=== PATIENT | female | born 1965 | race Caucasian/White ===

== ENCOUNTER 2017-11-24 20:02 | Emergency (ER) | payer BC ==
[~2017-11-24] VITALS: Ht 147.3 cm; Wt 58.1 kg
[2017-11-24 20:34] LABS: CLARITY/URINE CLEAR (CLEAR); COLOR,URINE YELLOW (YELLOW); PROTEIN URINE NEGATIVE (NEGATIVE)
[2017-11-24 20:35] LABS: BILIRUBIN,URINE NEGATIVE (NEGATIVE); BLOOD, URINE NEGATIVE (NEGATIVE); GLUCOSE,URINE NEGATIVE (NEGATIVE); KETONES,URINE NEGATIVE (NEGATIVE); LEUKOCYTE ESTERASE ,URINE 2+ (NEGATIVE); NITRITE, URINE NEGATIVE (NEGATIVE); UROBILINOGEN,URINE 0.2 (0.2-1.0)
[2017-11-24 20:41] LABS: BACTERIA,URINE MODERATE /HPF (None Seen); RBC,URINE 0-3 /HPF (0-3); WBC,URINE 20-50 /HPF (0-3)
[2017-11-24] MEDS ORDERED: NACL 0.9% 1,000 ML IV ONE (21:28)
[2017-11-24] MEDS ORDERED: MORPHINE 2 MG/ML INJ. SYRINGE IVP ONE (21:30)
[2017-11-24] MEDS ORDERED: ONDANSETRON HCL 4 MG/2 ML VIAL IVP ONE (21:30)
[2017-11-24 21:53] LABS: CALCIUM 9.3 mg/dL (8.4-11.0); CREATININE 0.99 mg/dL (0.55-1.30); POTASSIUM 3.6 mmol/L (3.5-5.1)
[2017-11-24 21:54] LABS: PROTHROMBIN TIME 9.9 SECS (9.5-12.5)
[2017-11-24 21:55] LABS: BASOPHILS # (AUTO) 0.1 K/uL (0.0-0.2); BASOPHILS % (AUTO) 0.7 % (0.0-2.0); EOSINOPHILS # (AUTO) 0.2 K/uL (0.0-0.4); EOSINOPHILS % (AUTO) 2.4 % (0.0-4.0); HEMATOCRIT 40.7 % (36-48); HEMOGLOBIN 12.8 g/dL (12.0-16.0); LYMPHOCYTES # (AUTO) 3.4 K/uL (1.0-5.5); LYMPHOCYTES % (AUTO) 41.1 % (20.5-51.5); MEAN CORPUSCULAR HEMOGLOBIN 30 pg (27-31); MEAN CORPUSCULAR HGB CONC 32 % (32-36); MEAN CORPUSCULAR VOLUME 96 fL (79.0-98.0); MONOCYTES # (AUTO) 0.7 K/uL (0.0-1.0); MONOCYTES % (AUTO) 8.6 % (1.7-9.3); NEUTROPHILS # (AUTO) 3.8 K/uL (1.8-7.7); NEUTROPHILS % (AUTO) 47.2 % (40.0-70.0); PLATELET COUNT (AUTO) 439 K/uL (130-430); RED BLOOD CELL COUNT(AUTO) 4.22 MIL/uL (4.2-6.2); RED CELL DISTRIBUTION WIDTH 12.1 % (9.0-15.0); WHITE BLOOD COUNT (AUTO) 8.2 K/uL (4.8-10.8)
[2017-11-24 21:58] LABS: ALBUMIN 4.1 g/dL (3.4-4.8); TOTAL BILIRUBIN 0.4 mg/dL (0.0-1.0)
[2017-11-24] MEDS ORDERED: cefTRIAXone 2 GM VIAL ONE (22:05)
[2017-11-25] VITALS: BP_SYST 125
== END 2017-11-25 | disposition home or self-care (01) ==
LOC: SED 20:02
DX: N12 Tubulo-interstitial nephritis, not specified as acute or chronic (principal)
CPT/HCPCS: 36415; 71045; 74176; 80053; 81000; 83605; 83690; 85025; 85610; 87040; 87086; 87186; 96365; 96375; 99285; J0696; J2270; J2405; J7030

== ENCOUNTER 2017-11-26 21:07 | Emergency (ER) | payer BC ==
[~2017-11-26] VITALS: Ht 160 cm; Wt 79.4 kg
[2017-11-26 21:15] VITALS: BP_SYST 176
[2017-11-26] MEDS ORDERED: ACYCLOVIR 400 MG TABLET PO ONE (21:45)
[2017-11-26 22:05] LABS: BILIRUBIN,URINE NEGATIVE (NEGATIVE); BLOOD, URINE NEGATIVE (NEGATIVE); CLARITY/URINE CLEAR (CLEAR); COLOR,URINE YELLOW (YELLOW); GLUCOSE,URINE NEGATIVE (NEGATIVE); KETONES,URINE NEGATIVE (NEGATIVE); LEUKOCYTE ESTERASE ,URINE NEGATIVE (NEGATIVE); NITRITE, URINE NEGATIVE (NEGATIVE); PH,URINE 6.5 (5.0-8.0); PROTEIN URINE NEGATIVE (NEGATIVE); UROBILINOGEN,URINE 0.2 (0.2-1.0)
[2017-11-27 00:09] VITALS: BP_SYST 144
== END 2017-11-27 00:09 | disposition home or self-care (01) ==
LOC: SED 21:07
DX: B02.9 Zoster without complications (principal); N39.0 Urinary tract infection, site not specified; E78.00 Pure hypercholesterolemia, unspecified; R03.0 Elevated blood-pressure reading, without diagnosis of hypertension
CPT/HCPCS: 81003; 81025; 99283